=== PATIENT | male | born 1975 | race Caucasian/White ===

== ENCOUNTER 2018-06-21 21:26 | Emergency (ER) | payer SELFPAY, OTHER | END 2018-06-22 00:08 | disposition left against medical advice (07) | LOC: FTE 21:26 | DX: Z53.21 Procedure and treatment not carried out due to patient leaving prior to being seen by health care provider (principal) ==

== ENCOUNTER 2018-07-21 08:50 | Emergency (ER) | payer OTHER ==
[2018-07-21] MEDS ORDERED: PIPER-TAZO 3.375 GM IV (PMX) 100 ML IVPB ×2 (09:05→18:00)
[2018-07-21] MEDS ORDERED: VANCOMYCIN 1 GM (PMX) 250 ML IVPB (09:05)
[2018-07-21] MEDS ORDERED: SODIUM CHLORIDE 0.9% 1L BAG IV* (09:05)
[2018-07-21] MEDS: ACETAMINOPHEN 325 MG TAB PO (09:18)
[2018-07-21 09:20] LABS: ADD MAN DIFF? NO
[2018-07-21 09:23] LABS: WHITE BLOOD COUNT 12.4 10^3/ul (4.8-10.8)
[2018-07-21 09:23] LABS: BASOPHILS % 0.1 % (0.0-2.0); HEMATOCRIT 29.7 % (42.0-52.0); HEMOGLOBIN 9.5 g/dl (14.0-18.0); LYMPHOCYTES # 0.8 10^3/ul (0.8-2.9); LYMPHOCYTES % 6.8 % (15.0-51.0); MEAN CORPUSCULAR HEMOGLOBIN 24.1 pg (29.0-33.0); MEAN CORPUSCULAR VOLUME 75.2 fl (82.0-101.0); MEAN PLATELET VOLUME 9.5 fl (7.4-10.4); MONOCYTE # 0.5 10^3/ul (0.3-0.9); MONOCYTES % 3.8 % (0.0-11.0); NEUTROPHILS % 88.7 % (39.0-77.0); PLATELET COUNT 290 10^3/UL (140-415); RED BLOOD COUNT 3.95 10^6/ul (4.70-6.10); RED CELL DISTRIBUTION WIDTH 17.2 % (11.5-14.5)
[2018-07-21 09:41] LABS: INR 1.22; PROTIME 15.5 Sec (11.9-14.9); PT RATIO 1.2
[2018-07-21 09:42] LABS: ANION GAP 7 (5-13); Estimated GFR > 60 mL/min (>60); PARTIAL THROMBOPLASTIN TIME 32.8 Sec (23.0-35.0)
[2018-07-21 09:43] LABS: ALANINE AMINOTRANSFERASE 17 IU/L (13-69); ALBUMIN 3.3 g/dl (3.3-4.9); ALBUMIN/GLOBULIN RATIO 0.63; ALKALINE PHOSPHATASE 153 IU/L (42-121); ASPARTATE AMINO TRANSFERASE 40 IU/L (15-46); BILIRUBIN,INDIRECT 0.1 mg/dl (0-1.1); BILIRUBIN,TOTAL 0.1 mg/dl (0.2-1.3); BLOOD UREA NITROGEN 12 mg/dl (7-20); CALCIUM 8.1 mg/dl (8.4-10.2); CARBON DIOXIDE 29 mmol/L (21-31); CHLORIDE 94 mmol/L (97-110); CREATININE 0.76 mg/dl (0.61-1.24); GLUCOSE 148 mg/dl (70-220); POTASSIUM 3.5 mmol/L (3.5-5.1); SODIUM 130 mmol/L (135-144); TOTAL PROTEIN 8.5 g/dl (6.1-8.1)
[2018-07-21 09:54] LABS: TROPONIN-I < 0.012 ng/ml (0.000-0.120)
[2018-07-21] MEDS ORDERED: LIDOCAINE 1% (MPF) 5 ML VIAL SC (10:00)
[2018-07-21 11:05] LABS: ADD UMIC NO; UR ASCORBIC ACID NEGATIVE (NEGATIVE); UR BILIRUBIN (Dip) NEGATIVE (NEGATIVE); UR BLOOD (Dip) NEGATIVE (NEGATIVE); UR CLARITY CLEAR (CLEAR); UR COLOR YELLOW (YELLOW); UR GLUCOSE (Dip) NEGATIVE (NEGATIVE); UR KETONES (Dip) NEGATIVE (NEGATIVE); UR LEUKOCYTE ESTERASE (Dip) NEGATIVE Leu/ul (NEGATIVE); UR NITRITE (Dip) NEGATIVE (NEGATIVE); UR SPECIFIC GRAVITY (Dip) 1.003 (1.003-1.030); UR TOTAL PROTEIN (Dip) NEGATIVE (NEGATIVE); UR UROBILINOGEN (Dip) NEGATIVE (NEGATIVE)
[2018-07-21 12:28] LABS: HAAIG REFLEX REFLEX FILED
[2018-07-21] MEDS ORDERED: NACL 0.9% 3 ML SYG IV (12:30)
[2018-07-21] MEDS ORDERED: morphine 2 MG INJ IV (12:30)
[2018-07-21] MEDS ORDERED: NICOTINE (14 MG/24 HR) PATCH TRANSDERM (12:30)
[2018-07-21] MEDS ORDERED: VANCOMYCIN IV PER PHARMACY XX (12:30)
[2018-07-21] MEDS ORDERED: ACETAMINOPHEN 325 MG TAB PO (12:30)
[2018-07-21] MEDS ORDERED: ONDANSETRON 4 MG INJ IV (12:30)
[2018-07-21] MEDS ORDERED: HYDROCODONE/APAP (5/325) TAB PO (12:30)
[2018-07-21 12:57] LABS: IRON 19 ug/dl (35-150)
[2018-07-21 13:07] LABS: % IRON SATURATION 8 % SAT (22-52); TOTAL IRON BINDING CAPACITY 253 ug/dl (241-421)
[2018-07-21 13:29] LABS: HEPATITIS B SURFACE ANTIGEN NEGATIVE (NEGATIVE)
[2018-07-21 13:33] LABS: FERRITIN 86.6 ng/ml (17.9-464.0)
[2018-07-21 13:39] LABS: ERYTHROCYTE SEDIMENTATION RATE 75 mm/Hr (0-15); HEMOGLOBIN A1C 6.2 % (0-5.9)
[2018-07-21 13:47] LABS: HEPATITIS B CORE ANTIBODY NEGATIVE (NEGATIVE); HEPATITIS C VIRAL ANTIBODY NEGATIVE (NEGATIVE); HIV 1&2 ANTIBODY NEGATIVE (NEGATIVE)
[2018-07-21 13:57] LABS: SODIUM,URINE RANDOM < 13 mmol/L (30-90)
[2018-07-21 13:57] LABS: BARBITURATES Negative (NEGATIVE); BENZODIAZEPINES Negative (NEGATIVE); CANNABINOIDS Negative (NEGATIVE); COCAINE Negative (NEGATIVE)
[2018-07-21 13:59] LABS: AMPHETAMINE/METHAMPHETAMINE Positive (NEGATIVE); OPIATES Positive (NEGATIVE)
[2018-07-21 14:15] LABS: C-REACTIVE PROTEIN 21.2 mg/dl (0.0-0.9)
[2018-07-21 14:48] LABS: FREE T4 (FREE THYROXINE) 1.29 ng/dl (0.64-1.79)
[2018-07-21 15:32] LABS: OSMOLALITY,URINE 131 mOsm/kg (250-1200)
[2018-07-21 15:33] LABS: OSMOLALITY 263 mOsm/kg (280-295)
[2018-07-22] MEDS ORDERED: ENOXAPARIN 40 MG/0.4 ML SYG SC (09:00)
== END 2018-07-21 13:23 | disposition left against medical advice (07) ==
LOC: E/R 08:50
DX: A41.9 Sepsis, unspecified organism (principal); L02.413 Cutaneous abscess of right upper limb; F19.10 Other psychoactive substance abuse, uncomplicated; F17.210 Nicotine dependence, cigarettes, uncomplicated; M79.601 Pain in right arm
CPT/HCPCS: 71045; 80053; 80307; 81003; 82728; 82962; 83036; 83540; 83605; 83930; 83935; 84300; 84439; 84443; 84484; 85025; 85610; 85651; 85730; 86140; 86703; 86704; 86709; 86803; 86850; 86900; 86901; 87040; 87086; 87340; 93005; 99285-25